=== PATIENT | female | born 1985 | race Caucasian/White ===

== ENCOUNTER → 2017-12-07 | Outpatient (CLI) | payer OTHER ==
[2017-12-07 14:38] LABS: BASOPHILS # (AUTO) 0.03 x10^3/uL (0-0.1); BASOPHILS % (AUTO) 0 % (0-1); EOSINOPHILS # (AUTO) 0.07 x10^3/uL (0-0.4); EOSINOPHILS % (AUTO) 1 % (1-7); LYMPHOCYTES # (AUTO) 2.07 x10^3/uL (1-3.4); LYMPHOCYTES % (AUTO) 25 % (22-44); MD NO; MEAN CORPUSCULAR HGB CONC 34.2 g/dL (32.4-35.8); MEAN CORPUSCULAR VOLUME 96.3 fL (80-100); MEAN PLATELET VOLUME 9.4 fL (7.4-10.4); MONOCYTES # (AUTO) 0.48 x10^3/uL (0.2-0.8); MONOCYTES % (AUTO) 6 % (2-9); NEUTROPHILS # (AUTO) 5.67 x10^3/uL (1.8-6.8); NEUTROPHILS % (AUTO) 68 % (42-75); PLATELET COUNT 179 x10^3/uL (130-400); RED BLOOD COUNT 4.17 x10^6/uL (3.82-5.3); RED CELL DISTRIBUTION WIDTH 12.8 % (9.6-15.2)
== END | disposition home or self-care (01) ==
LOC: LAB 14:18
PROVIDERS: ATTEND Obstetrics & Gynecology
DX: Z34.80 Encounter for supervision of other normal pregnancy, unspecified trimester (principal)
CPT/HCPCS: 36415; 85025; 86592; 86762; 86850; 86900; 87086; 87340; 87806; G0475

== ENCOUNTER 2018-04-03 07:09 | Outpatient (CLI) | payer OTHER ==
[2018-04-03 08:23] LABS: BASOPHILS # (AUTO) 0.01 x10^3/uL (0-0.1); BASOPHILS % (AUTO) 0 % (0-1); EOSINOPHILS # (AUTO) 0.06 x10^3/uL (0-0.4); EOSINOPHILS % (AUTO) 1 % (1-7); LYMPHOCYTES # (AUTO) 1.42 x10^3/uL (1-3.4); LYMPHOCYTES % (AUTO) 20 % (22-44); MD NO; MEAN CORPUSCULAR HEMOGLOBIN 33.1 pg (27.0-34.8); MEAN CORPUSCULAR VOLUME 100.3 fL (80-100); MEAN PLATELET VOLUME 9.3 fL (7.4-10.4); MONOCYTES # (AUTO) 0.33 x10^3/uL (0.2-0.8); MONOCYTES % (AUTO) 5 % (2-9); NEUTROPHILS # (AUTO) 5.39 x10^3/uL (1.8-6.8); NEUTROPHILS % (AUTO) 75 % (42-75); PLATELET COUNT 188 x10^3/uL (130-400); RED CELL DISTRIBUTION WIDTH 13.6 % (9.6-15.2)
== END 2018-04-03 23:59 | disposition home or self-care (01) ==
LOC: LAB 07:09
PROVIDERS: ATTEND Obstetrics & Gynecology
DX: Z34.80 Encounter for supervision of other normal pregnancy, unspecified trimester (principal); Z3A.00 Weeks of gestation of pregnancy not specified
CPT/HCPCS: 36415; 82950; 85025; 86592; 86850; 86900

== ENCOUNTER → 2018-05-18 | Outpatient (CLI) | payer OTHER ==
[2018-05-18 09:48] LABS: ALANINE AMINOTRANSFERASE 17 U/L (12-78); ALBUMIN 2.9 g/dL (3.4-5.0); ANION GAP 9 mmol/L (5-15); CALCIUM 8.3 mg/dL (8.5-10.1); CHLORIDE 110 mmol/L (98-107); CREATININE 0.58 mg/dL (0.55-1.02)
[2018-05-18 09:51] LABS: ALKALINE PHOSPHATASE 80 U/L (45-117); BILIRUBIN,TOTAL 0.3 mg/dL (0.2-1.0); TOTAL PROTEIN 6.5 g/dL (6.4-8.2)
== END | disposition home or self-care (01) ==
LOC: LAB 09:26
PROVIDERS: ATTEND Obstetrics & Gynecology
DX: O26.619 Liver and biliary tract disorders in pregnancy, unspecified trimester (principal); Z3A.00 Weeks of gestation of pregnancy not specified
CPT/HCPCS: 36415; 80053; 82239

== ENCOUNTER 2018-07-06 07:32 | Outpatient (CLI) | payer OTHER ==
[~2018-07-06] VITALS: Ht 165.1 cm; Wt 75.0 kg
[2018-07-08] MEDS ORDERED: CETI10CA PO (11:40)
[2018-07-08] MEDS ORDERED: PREN1TAB60 PO (11:40)
[2018-07-08] MEDS ORDERED: FLUT9.9S PO (11:40)
[2018-07-10] MEDS ORDERED: DOCU-131 PO (10:06)
[2018-07-10] MEDS ORDERED: IBUP-1223 PO (10:06)
== END 2018-07-06 08:45 | disposition home or self-care (01) ==
LOC: LDOP 07:32
PROVIDERS: ATTEND Obstetrics & Gynecology
DX: O42.92 Full-term premature rupture of membranes, unspecified as to length of time between rupture and onset of labor (principal); Z3A.39 39 weeks gestation of pregnancy
CPT/HCPCS: 59025; 89060; 99211; G0463; Q0114

== ENCOUNTER 2018-08-22 15:32 | Emergency (ER) | payer OTHER ==
[~2018-08-22] VITALS: Ht 165.1 cm; Wt 63.1 kg
[~2018-08-22 15:32] MED LIST: CETI10CA PO; DOCU-131 PO; FLUT9.9S PO; IBUP-1223 PO; PREN1TAB60 PO
[2018-08-22 16:36] LABS: BASOPHILS # (AUTO) 0.02 x10^3/uL (0-0.1); BASOPHILS % (AUTO) 0 % (0-1); EOSINOPHILS # (AUTO) 0.09 x10^3/uL (0-0.4); EOSINOPHILS % (AUTO) 1 % (1-7); LYMPHOCYTES # (AUTO) 2.13 x10^3/uL (1-3.4); LYMPHOCYTES % (AUTO) 30 % (22-44); MD NO; MEAN CORPUSCULAR HEMOGLOBIN 31.8 pg (27.0-34.8); MEAN CORPUSCULAR HGB CONC 32.9 g/dL (32.4-35.8); MEAN CORPUSCULAR VOLUME 96.7 fL (80-100); MEAN PLATELET VOLUME 9.3 fL (7.4-10.4); MONOCYTES # (AUTO) 0.43 x10^3/uL (0.2-0.8); MONOCYTES % (AUTO) 6 % (2-9); NEUTROPHILS # (AUTO) 4.56 x10^3/uL (1.8-6.8); NEUTROPHILS % (AUTO) 63 % (42-75); PLATELET COUNT 228 x10^3/uL (130-400); RED BLOOD COUNT 4.45 x10^6/uL (3.82-5.3)
[2018-08-22 16:45] LABS: ANION GAP 9 mmol/L (5-15); CALCIUM 9.1 mg/dL (8.5-10.1); CHLORIDE 109 mmol/L (98-107); CREATININE 1.02 mg/dL (0.55-1.02)
--- NOTE | 2018-08-22 16:52 | NUR ---
PT. IS A & O X 4 WITH C/O RIGHT BREAST/NIPPLE PAIN SECONDARY TO A KNOWN STAFF INFECTION. ONSET WAS August AND PT. 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 PT. IS BREAST FEEDING AND TOLD SHE HAD A MASTITIS. PT. WAS TREATED WITH DOXYCYCLINE AND FINISHED THE ENTIRE COURSE OF ABX. PT. HAS CONTINUED REDNESS, HEAT, SWELLING, YELLOW DRAINAGE AND PAIN PRESENT. PT. WAS SENT TO THE ER TODAY FOR FURTHER EVALUATION OF THE WOUND ON HER BREAST. PT.'S ULTRASOUND WAS DONE. PT. IS RESTING WITH THE HOB ELEVATED GREATER THAN 30 DEGREES. PT. DENIES NEEDING A BLANKET. LUNGS ARE CTA THROUGHOUT WITH CAP REFILL BRISK. PT. HAS THE SIDERAILS UP X 2 AND THE CALL LIGHT IN PLACE.
[2018-08-22] MEDS ORDERED: AMOXICILLIN/CLAV 875-125MG TABLET PO ONE (18:00)
[2018-08-22] MEDS ORDERED: AMOXICILLIN/CLAV 875-125MG TABLET ONE (18:14)
--- NOTE | 2018-08-22 18:21 | NUR ---
PT. WAS MEDICATED ORDERED. VSS. PT. WAS GIVEN DISCHARGE INSTRUCTIONS AND A SCRIPT. UNDERSTANDING WAS VERBALIZED ALONG WITH WILLINGNESS TO COMPLY. PT. WAS AMBULATORY TO THE DISCHARGE DESK. VSS.
[2018-08-22 18:25] VITALS: BP 111/70
== END 2018-08-22 18:28 | disposition home or self-care (01) ==
LOC: ED 18:14
DX: O91.12 Abscess of breast associated with the puerperium (principal)
CPT/HCPCS: 36415; 76642; 80048; 82040; 85025; 99284